=== PATIENT | female | born 2000 | race Hispanic/Latino ===

== ENCOUNTER 2021-09-06 13:08 | Day surgery (SDC) | payer MEDICAID, SELFPAY ==
[2021-09-06 15:01] LABS: Fetal Membranes Rupture No Membranes Rupture (No Rupture)
[2021-09-06 15:27] VITALS: BMI 29.2
[2021-09-06] MEDS ORDERED: hydrALAZINE 20 MG/ML VIAL SLOW IVP PRN (15:56)
== END 2021-09-06 16:19 | disposition home health service (06) ==
LOC: EDBD → CSHLD/OP 13:08
PROVIDERS: ATTEND Family Medicine
DX: O99.891 Other specified diseases and conditions complicating pregnancy (principal); N89.8 Other specified noninflammatory disorders of vagina; O26.23 Pregnancy care for patient with recurrent pregnancy loss, third trimester; Z3A.30 30 weeks gestation of pregnancy
CPT/HCPCS: 84112; 99283

== ENCOUNTER 2021-10-07 12:08 | Day surgery (SDC) | payer MEDICAID, OTHER, SELFPAY ==
[2021-10-07 12:38] VITALS: BMI 31.6
[2021-10-07] MEDS ORDERED: hydrALAZINE 20 MG/ML VIAL SLOW IVP PRN (13:10)
[2021-10-07] MEDS ORDERED: Lactated Ringer's 1,000 ML IV SCH (13:15)
[2021-10-07] MEDS ORDERED: Ondansetron ODT 4 MG TAB SL PRN (13:29)
[2021-10-07] MEDS ORDERED: Acetaminophen 500 MG TAB PO SCH (13:30)
[2021-10-07] MEDS ORDERED: Metoclopramide HCl 10 MG/2 ML VIAL IVP SCH (14:00)
[2021-10-07 14:01] LABS: #Monocytes 1.1 10x3/uL (0.0-1.1); %Basophils 0.3 % (0.0-2.0); %Eosinophils 0.1 % (0.0-6.0); %Lymphocytes 7.2 % (18.0-47.0); %Monocytes 10.8 % (0.0-10.0); %Neutrophils 78.8 % (40.0-75.0); Hemoglobin 9.1 g/dL (12.0-15.5); Mean Corpuscular HGB CONC 31.8 g/dL (32.0-36.0); Mean Corpuscular Hemoglobin 26.4 pg (27.0-33.0); Mean Corpuscular Volume 82.9 fl (81.6-98.3); Mean Platelet Volume 10.3 fl (7.4-10.4); Platelet Count 261 10x3/uL (150-450); RBC Distribution Width 14.6 % (11.5-14.5); Red Blood Cell (RBC) Count 3.45 10x6/uL (3.90-5.03); White Blood Cell (WBC) Count 10.1 10x3/uL (3.5-10.5)
[2021-10-07 14:16] LABS: ALT (SGPT) 14 U/L (8-55); AST (SGOT) 15 U/L (5-34); Albumin 3.4 g/dL (3.5-5.0); Alkaline Phosphatase 156 U/L (40-100); Anion Gap 18 mmol/L (10-20); BUN (Urea Nitrogen) 7 mg/dL (7.0-18.7); Calc. Creatinine Clearance 168 mL/min (70-130); Carbon Dioxide 18 mmol/L (22-29); Chloride 105 mmol/L (98-107); Globulin 3.3 g/dL (2.4-3.5); Glucose 79 mg/dL (70-105); Potassium 3.8 mmol/L (3.5-5.1); Protein, Total 6.7 g/dL (6.0-8.3); Sodium 137 mmol/L (136-145)
[2021-10-07 14:56] LABS: Bilirubin Neg (Negative); Blood, Urine Negative (Negative); Clarity Clear (Clear); Glucose, Urine (Dipstick) Normal (Negative); Ketone, Urine 50 mg/dL (Negative); Leukocyte 500 (Negative); Nitrite Negative (Negative); Protein, Urine (Dipstick) Negative (Neg-Trace); Specific Gravity, Urine 1.015 (1.002-1.036); Urobilinogen Normal mg/dL (Less than 2); pH, Urine 6.5 (5.0-9.0)
[2021-10-07 15:05] LABS: Urine Culture Reflex No No
[2021-10-07 15:07] LABS: Bacteria/HPF Rare-Few HPF (None Seen); RBC/HPF 0-3 HPF (0-3)
[2021-10-07 15:31] LABS: SARS-CoV-2 NAA Rapid Test Not Detected (NotDetected)
== END 2021-10-07 16:40 | disposition home health service (06) ==
LOC: EDBD → CSHLD/OP 12:08
PROVIDERS: ATTEND Family Medicine
DX: O99.513 Diseases of the respiratory system complicating pregnancy, third trimester (principal); J06.9 Acute upper respiratory infection, unspecified; O36.8130 Decreased fetal movements, third trimester, not applicable or unspecified; O26.813 Pregnancy related exhaustion and fatigue, third trimester; O99.613 Diseases of the digestive system complicating pregnancy, third trimester; K21.9 Gastro-esophageal reflux disease without esophagitis; O99.013 Anemia complicating pregnancy, third trimester; Z3A.35 35 weeks gestation of pregnancy; Z87.440 Personal history of urinary (tract) infections; Z79.899 Other long term (current) drug therapy; Z20.822 Contact with and (suspected) exposure to COVID-19
CPT/HCPCS: 36415; 80053; 81001; 85025; 96360; 96361; 99284; Q0162

== ENCOUNTER 2021-11-14 15:54 | Outpatient (CLI) | payer OTHER ==
[2021-11-15 08:33] LABS: SARS-CoV-2 PCR by NAA Not Detected (NotDetected)
== END 2021-11-14 15:55 | disposition home or self-care (01) ==
LOC: CSHLAB 15:54
PROVIDERS: ATTEND Family Medicine
DX: Z20.822 Contact with and (suspected) exposure to COVID-19 (principal)
CPT/HCPCS: U0003; U0005

== ENCOUNTER 2021-11-16 05:30 | Inpatient (IN) | payer OTHER ==
[2021-11-16] MEDS ORDERED: NS w/ Oxytocin 30 units 500 ML ONE (07:18)
[2021-11-16 08:22] VITALS: BMI 35.8
[2021-11-16] MEDS ORDERED: Promethazine HCl 25 MG/ML VIAL IM PRN ×2 (08:34→14:48)
[2021-11-16] MEDS ORDERED: Carboprost 250 MCG/ML AMP IM PRN (08:34)
[2021-11-16] MEDS ORDERED: Lidocaine 1% (PF) 30 ML VIAL SC PRN (08:34)
[2021-11-16] MEDS ORDERED: Misoprostol 200 MCG TAB PR PRN (08:34)
[2021-11-16] MEDS ORDERED: Acetaminophen 500 MG TAB PO PRN (08:34)
[2021-11-16] MEDS ORDERED: Ibuprofen 800 MG TAB PO PRN (08:34)
[2021-11-16] MEDS ORDERED: HYDROcodone/Acetaminophen 5/325 mg Tablet PO PRN ×2 (08:34→21:41)
[2021-11-16] MEDS ORDERED: hydrALAZINE 20 MG/ML VIAL SLOW IVP PRN ×2 (08:34→21:41)
[2021-11-16] MEDS ORDERED: Ondansetron PF 4 MG/2 ML Vial IVP PRN ×2 (08:34→14:48)
[2021-11-16] MEDS ORDERED: Methylergonovine 0.2 MG/ML VIAL IM PRN (08:34)
[2021-11-16] MEDS ORDERED: Butorphanol Tartrate 1 MG/ML VIAL SLOW IVP PRN (08:34)
[2021-11-16] MEDS ORDERED: NS w/ Oxytocin 30 units 500 ML IV SCH ×2 (08:45)
[2021-11-16 11:17] LABS: Hemoglobin 9.3 g/dL (12.0-15.5); Mean Corpuscular HGB CONC 31.4 g/dL (32.0-36.0); Mean Corpuscular Hemoglobin 24.7 pg (27.0-33.0); Mean Corpuscular Volume 78.7 fl (81.6-98.3); Mean Platelet Volume 10.7 fl (7.4-10.4); Platelet Count 346 10x3/uL (150-450); RBC Distribution Width 16.1 % (11.5-14.5); Red Blood Cell (RBC) Count 3.76 10x6/uL (3.90-5.03); White Blood Cell (WBC) Count 10.3 10x3/uL (3.5-10.5)
[2021-11-16 11:50] LABS: HIV (1/2) Antibody/Antigen Non-Reactive (NonReactive); HIV 1/2 INDEX 0.06 S/CO (<1.00)
[2021-11-16 11:51] LABS: Syphilis Antibody Nonreactive (Nonreactive); Syphilis Antibody Index 0.06 S/CO (<1.00 Non-Reactive)
[2021-11-16] MEDS ORDERED: Fentanyl 2 mcg/Bup 0.1% Cadd 100 ML ONE (14:21)
[2021-11-16] MEDS ORDERED: Fentanyl 100 MCG/2 ML VIAL ONE (14:31)
[2021-11-16] MEDS ORDERED: ePHEDrine Sulfate 50 MG/10 ML VIAL SLOW IVP PRN (14:48)
[2021-11-16] MEDS ORDERED: Naloxone HCl 0.4 mg/ml Vial IVP PRN ×2 (14:48)
[2021-11-16] MEDS ORDERED: Acetaminophen 325 MG TAB PO PRN (14:48)
[2021-11-16] MEDS ORDERED: Moisturizing Cream (Eucerin) 113 GM JAR TOP PRN (14:48)
[2021-11-16] MEDS ORDERED: diphenhydrAMINE 50 MG/ML VIAL IVP PRN (14:48)
[2021-11-16] MEDS ORDERED: Lactated Ringer's 500 ML IV PRN (14:48)
[2021-11-16] MEDS ORDERED: Fentanyl 100 MCG/2 ML VIAL EPIDURAL PRN (14:48)
[2021-11-16] MEDS ORDERED: Fentanyl 2 mcg/Bupivacaine 0.1% Cassette 100 ML EPIDURAL SCH (15:00)
[2021-11-16] MEDS ORDERED: Communication Order-Pharmacy FS SCH (15:00)
[2021-11-16] MEDS: Lactated Ringer's 1,000 ML IV SCH ×2 (16:57→22:43)
[2021-11-16] MEDS ORDERED: Lanolin Ointment 7 GM TUBE TOP PRN (21:41)
[2021-11-16] MEDS ORDERED: Boostrix 0.5 ML (Tdap) VIAL IM ONE (21:41)
[2021-11-16] MEDS ORDERED: Benzocaine-Menthol 82.5 ML CAN TOP PRN (21:41)
[2021-11-16] MEDS ORDERED: Milk Of Magnesia 30 ML UDCUP PO PRN (21:41)
[2021-11-16] MEDS ORDERED: Bisacodyl 10 MG SUPP PR PRN (21:41)
[2021-11-16] MEDS: Docusate 100 MG CAP PO SCH (23:14)
[2021-11-16] MEDS: Ibuprofen 800 MG TAB PO SCH (23:14)
[2021-11-17 01:44] LABS: Hep B Surf Ag Non-Reactive S/CO (NonReactive)
[2021-11-17 01:50] LABS: HBSAg Index 0.18 S/CO (0-0.99)
[2021-11-17 05:00] LABS: Hemoglobin 7.1 g/dL (12.0-15.5); Mean Corpuscular HGB CONC 31.3 g/dL (32.0-36.0); Mean Corpuscular Hemoglobin 25.1 pg (27.0-33.0); Mean Corpuscular Volume 80.2 fl (81.6-98.3); Mean Platelet Volume 10.9 fl (7.4-10.4); Platelet Count 256 10x3/uL (150-450); RBC Distribution Width 16.1 % (11.5-14.5); Red Blood Cell (RBC) Count 2.83 10x6/uL (3.90-5.03); White Blood Cell (WBC) Count 13.4 10x3/uL (3.5-10.5)
[2021-11-17] MEDS: Ibuprofen 800 MG TAB PO SCH ×3 (06:18→22:59)
[2021-11-17] MEDS: Docusate 100 MG CAP PO SCH ×2 (08:51→22:59)
[2021-11-17] MEDS: Ferrous Sulfate 325 MG TAB PO SCH ×2 (08:51→17:45)
[2021-11-18] MEDS: Ibuprofen 800 MG TAB PO SCH ×2 (06:31→14:31)
[2021-11-18 08:17] VITALS: BP 102/57; TEMP 97.5
[2021-11-18] MEDS: Ferrous Sulfate 325 MG TAB PO SCH ×2 (08:47→15:27)
[2021-11-18] MEDS: Docusate 100 MG CAP PO SCH (08:47)
== END 2021-11-18 17:24 | disposition home or self-care (01) | DRG 807 ==
LOC: CSHLD 05:40 → CSHPP 21:55
PROVIDERS: ADMIT Family Medicine; ATTEND Family Medicine
PROC: 10D07Z6 Extraction of Products of Conception, Vacuum, Via Natural or Artificial Opening (ICD-10-PCS; principal; 2021-11-16)
PROC: 0HQ9XZZ Repair Perineum Skin, External Approach (ICD-10-PCS; 2021-11-16)
DX: O48.0 Post-term pregnancy (principal); Z37.0 Single live birth; O76 Abnormality in fetal heart rate and rhythm complicating labor and delivery; O70.0 First degree perineal laceration during delivery; D64.9 Anemia, unspecified; O90.81 Anemia of the puerperium; Z3A.41 41 weeks gestation of pregnancy
CPT/HCPCS: 36415; 51702; 85027; 86780; 86850; 86900; 86901; 87340; 87389; J2001; J2405; J2590